=== PATIENT | female | born 1950 | race Caucasian/White ===

== ENCOUNTER 2017-11-27 14:42 | Emergency (ER) | payer OTHER ==
[~2017-11-27] VITALS: Ht 154.9 cm; Wt 93.0 kg
[2017-11-27 14:56] VITALS: BP_SYST 147
--- NOTE | 2017-11-27 15:04 | NUR ---
Patient to ER bed 8 to gown for evaluation. Side rails up. Report given to Yossi YARBROUGH.
[2017-11-27] MEDS ORDERED: NACL 0.9% 1,000 ML IV ONE ×2 (15:06→16:30)
--- NOTE | 2017-11-27 15:14 | NUR ---
Pt complains of abdominal pain since yesterday. Pt states pain started on left side that radiates to LUQ. Pt had diarrhea for the past two days and has been nauseous and vomiting. Denies fever. No other injuries/complaints per patient or noted.
[2017-11-27] MEDS ORDERED: MORPHINE 4 MG/ML INJ. SYRINGE IVP ONE (15:15)
[2017-11-27] MEDS ORDERED: ONDANSETRON HCL 4 MG/2 ML VIAL IVP ONE ×2 (15:15→16:30)
[2017-11-27] MEDS ORDERED: KETOROLAC TROMETHAMINE 30 MG VIAL IVP ONE (15:15)
--- NOTE | 2017-11-27 15:15 | NUR ---
ER Dr. Wright at bedside examining patient.
[2017-11-27 15:22] LABS: BILIRUBIN,URINE NEGATIVE (NEGATIVE); BLOOD, URINE NEGATIVE (NEGATIVE); CLARITY/URINE CLEAR (CLEAR); COLOR,URINE YELLOW (YELLOW); GLUCOSE,URINE NEGATIVE (NEGATIVE); KETONES,URINE 1+ (NEGATIVE); LEUKOCYTE ESTERASE ,URINE NEGATIVE (NEGATIVE); NITRITE, URINE NEGATIVE (NEGATIVE); PROTEIN URINE NEGATIVE (NEGATIVE); UROBILINOGEN,URINE 0.2 (0.2-1.0)
--- NOTE | 2017-11-27 15:35 | NUR ---
Medications were given, pt tolerated well. NO adverse reaction, will continue to monitor.
--- NOTE | 2017-11-27 15:48 | NUR ---
pt went to radiology in stable condition.
[2017-11-27 15:53] LABS: BASOPHILS % (AUTO) 0.5 % (0.0-2.0); EOSINOPHILS # (AUTO) 0.2 K/uL (0.0-0.4); EOSINOPHILS % (AUTO) 2.6 % (0.0-4.0); HEMATOCRIT 42.3 % (36-48); HEMOGLOBIN 13.9 g/dL (12.0-16.0); LYMPHOCYTES % (AUTO) 25.9 % (20.5-51.5); MEAN CORPUSCULAR HEMOGLOBIN 29 pg (27-31); MEAN CORPUSCULAR HGB CONC 33 % (32-36); MEAN CORPUSCULAR VOLUME 90 fL (79.0-98.0); MONOCYTES # (AUTO) 0.7 K/uL (0.0-1.0); MONOCYTES % (AUTO) 9.8 % (1.7-9.3); NEUTROPHILS # (AUTO) 4.7 K/uL (1.8-7.7); NEUTROPHILS % (AUTO) 61.2 % (40.0-70.0); PLATELET COUNT (AUTO) 275 K/uL (130-430); RED BLOOD CELL COUNT(AUTO) 4.72 MIL/uL (4.2-6.2); RED CELL DISTRIBUTION WIDTH 12.6 % (9.0-15.0); WHITE BLOOD COUNT (AUTO) 7.6 K/uL (4.8-10.8)
--- NOTE | 2017-11-27 16:00 | NUR ---
Pt returned from radiology in stable condition.
[2017-11-27 16:12] LABS: ALBUMIN 3.8 g/dL (3.4-4.8); CALCIUM 9.7 mg/dL (8.4-11.0); CREATININE 0.5 mg/dL (0.55-1.30); POTASSIUM 3.9 mmol/L (3.5-5.1); PROTHROMBIN TIME 10.1 SECS (9.5-12.5); TOTAL BILIRUBIN 0.6 mg/dL (0.0-1.0)
[2017-11-27] MEDS ORDERED: ONDANSETRON HCL 4 MG/2 ML VIAL ONE (16:21)
[2017-11-27] MEDS ORDERED: LEVOFLOXACIN 500 MG/D5W 100 ML IV ONE (17:15)
--- NOTE | 2017-11-27 17:20 | NUR ---
Patient up to bathroom with slow, steady gait. Will start abx when patient returns and will then dc when abx finished.
--- NOTE | 2017-11-27 17:40 | NUR ---
IV abx infusing without difficulty via pump, no redness/swelling noted at site. Lights dimmed for patient comfort.
[2017-11-27 18:36] VITALS: BP_SYST 136
--- NOTE | 2017-11-27 18:36 | NUR ---
Patient given written and verbal discharge instructions and verbalizes understanding. ER MD discussed with patient the results and treatment provided. Patient in stable condition. ID arm band removed. IV catheter removed intact and dressing applied, no active bleeding. Rx of Zithromax, Tylenol with Codeine, and Zofran given. Patient educated on pain management and to follow up with PMD. Pain Scale 0. Opportunity for questions provided and answered. Medication side effect fact sheet provided.
== END 2017-11-27 18:36 | disposition home or self-care (01) ==
LOC: SED 14:42
DX: N23 Unspecified renal colic (principal); J90 Pleural effusion, not elsewhere classified; I10 Essential (primary) hypertension; Z96.641 Presence of right artificial hip joint; Z90.89 Acquired absence of other organs; Z90.710 Acquired absence of both cervix and uterus; Z88.2 Allergy status to sulfonamides; Z88.8 Allergy status to other drugs, medicaments and biological substances
CPT/HCPCS: 36415; 71045; 74176; 80053; 81003; 82150; 82550; 83605; 83690; 85025; 85610; 85730; 87040; 93005; 96365; 96375; 96376; 99285; J1885; J1956; J2270; J2405; J7030

== ENCOUNTER 2020-06-24 11:54 | Observation (INO) | payer OTHER, SELFPAY ==
[~2020-06-24] VITALS: Ht 154.9 cm; Wt 103.9 kg
[2020-06-24 12:16] VITALS: BP_SYST 186
[2020-06-24] MEDS ORDERED: KETOROLAC TROMETHAMINE 30 MG VIAL IM ONE (13:15)
[2020-06-24] MEDS ORDERED: HYDROcodone/ACETAMIN 10-325 MG TAB PO ONE (13:15)
[2020-06-24] MEDS ORDERED: KETOROLAC TROMETHAMINE 30 MG VIAL ONE (13:29)
[2020-06-24] MEDS ORDERED: HYDR-4272 PO (15:20)
[2020-06-24] MEDS ORDERED: LIDO1ADH5 TP (15:23)
[2020-06-24] MEDS ORDERED: METOCLOPRAMIDE HCL 10 MG/2 ML VIAL IVP PRN (18:15)
[2020-06-24] MEDS ORDERED: MORPHINE 2 MG/ML INJ. SYRINGE IVP PRN (18:15)
[2020-06-24] MEDS ORDERED: ACETAMINOPHEN 325 MG TABLET PO PRN (18:15)
[2020-06-24] MEDS ORDERED: ONDANSETRON HCL 4 MG/2 ML VIAL IVP PRN (18:15)
[2020-06-24] MEDS ORDERED: DITXL5 PO (18:48)
[2020-06-24] MEDS ORDERED: METO25TA3 PO (18:48)
[2020-06-24] MEDS ORDERED: LISI-209 PO (18:48)
[2020-06-24 19:29] LABS: BASOPHILS # (AUTO) 0.1 K/uL (0.0-0.2); BASOPHILS % (AUTO) 0.7 % (0.0-2.0); EOSINOPHILS # (AUTO) 0.2 K/uL (0.0-0.4); EOSINOPHILS % (AUTO) 2.2 % (0.0-4.0); HEMATOCRIT 43.2 % (36-48); HEMOGLOBIN 14.2 g/dL (12.0-16.0); LYMPHOCYTES # (AUTO) 2.5 K/uL (1.0-5.5); MEAN CORPUSCULAR HEMOGLOBIN 30 pg (27-31); MEAN CORPUSCULAR HGB CONC 33 % (32-36); MEAN CORPUSCULAR VOLUME 92 fL (79.0-98.0); MONOCYTES # (AUTO) 1.4 K/uL (0.0-1.0); MONOCYTES % (AUTO) 15.5 % (1.7-9.3); NEUTROPHILS # (AUTO) 4.6 K/uL (1.8-7.7); NEUTROPHILS % (AUTO) 52.6 % (40.0-70.0); PLATELET COUNT (AUTO) 237 K/uL (130-430); RED BLOOD CELL COUNT(AUTO) 4.71 MIL/uL (4.2-6.2); RED CELL DISTRIBUTION WIDTH 13.5 % (9.0-15.0); WHITE BLOOD COUNT (AUTO) 8.7 K/uL (4.8-10.8)
[2020-06-24 20:01] LABS: ALANINE AMINOTRANSFERASE 27 U/L (12-78); ANION GAP 7 (5-15); ASPARTATE AMINOTRANSFERASE 21 U/L (10-37); CALCIUM 10.4 mg/dL (8.4-11.0); CHLORIDE 102 mmol/L (98-107); CREATININE 0.83 mg/dL (0.55-1.30); GLUCOSE 80 mg/dL (70-99); POTASSIUM 4.1 mmol/L (3.5-5.1); SODIUM SERUM 138 mmol/L (136-145); TOTAL BILIRUBIN 0.5 mg/dL (0.0-1.0); UREA NITROGEN, BLOOD 14 mg/dL (8-21)
[2020-06-24 20:02] LABS: ALBUMIN 3.5 g/dL (3.4-4.8); THYROID STIMULATING HORMONE 0.68 uIu/mL (0.34-4.82)
[2020-06-24 20:10] VITALS: BP_SYST 195
[2020-06-24] MEDS: MORPHINE 4 MG/ML INJ. SYRINGE IVP PRN (20:33)
[2020-06-24] MEDS ORDERED: METOPROLOL SUCCINATE 25 MG TAB.SR.24H (TOPROL XL) PO SCH (22:15)
[2020-06-24 23:26] VITALS: BP_SYST 180
[2020-06-24] MEDS: lisinopriL 5 MG TABLET PO SCH (23:27)
[2020-06-24] MEDS ORDERED: METOPROLOL SUCCINATE 25 MG TAB.SR.24H (TOPROL XL) PO ONE (23:45)
[2020-06-25] MEDS: MORPHINE 4 MG/ML INJ. SYRINGE IVP PRN ×2 (01:31→05:26)
[2020-06-25] MEDS ORDERED: LOSA50TA3 PO (01:56)
[2020-06-25 02:22] VITALS: BP_SYST 158
[2020-06-25 05:00] VITALS: BP_SYST 153
[2020-06-25] MEDS: lisinopriL 5 MG TABLET PO SCH (08:07)
[2020-06-25 08:30] VITALS: BP_SYST 154
[2020-06-25] MEDS ORDERED: METOPROLOL SUCCINATE 25 MG TAB.SR.24H (TOPROL XL) PO SCH (09:00)
[2020-06-25] MEDS ORDERED: cloNIDine HCL 0.1 MG TABLET ONE (11:32)
[2020-06-25] MEDS ORDERED: cloNIDine HCL 0.1 MG TABLET PO ONE (11:45)
[2020-06-25 12:29] VITALS: BP_SYST 148
[2020-06-25 16:59] VITALS: BP_SYST 146
[2020-06-25] MEDS ORDERED: NAPROXEN 250 MG TABLET PO SCH (18:30)
[2020-06-25] MEDS ORDERED: LOSARTAN POTASSIUM 50 MG TABLET (COZAAR) PO SCH (21:00)
[2020-06-26] MEDS ORDERED: OXYBUTYNIN CHLORIDE 5 MG TABLET PO SCH (09:00)
== END 2020-06-25 18:50 ==
LOC: SED 11:54 → SMU 16:41
PROVIDERS: ADMIT Internal Medicine Hospice and Palliative Medicine; ATTEND Internal Medicine Hospice and Palliative Medicine
DX: M25.551 Pain in right hip (principal); Z20.822 Contact with and (suspected) exposure to COVID-19; I10 Essential (primary) hypertension; N32.81 Overactive bladder; R54 Age-related physical debility; R29.6 Repeated falls; E66.01 Morbid (severe) obesity due to excess calories; Z68.41 Body mass index [BMI] 40.0-44.9, adult; Z96.643 Presence of artificial hip joint, bilateral; Z79.899 Other long term (current) drug therapy
CPT/HCPCS: 36415; 72192; 73502; 76376; 80053; 84443; 85025; 87426; 96372; 96374; 96375; 96376 ×2; 97116; 97162; 97530; 99285; G0378 ×2; J1885; J2270 ×2; J2405; J2765